=== PATIENT | female | born 1945 | race Caucasian/White ===

== ENCOUNTER 2017-02-03 13:40 | Inpatient (IN) | payer MEDICAID, MEDICARE ==
[~2017-02-03] VITALS: Ht 157.5 cm; Wt 50.8 kg
[~2017-02-03 13:40] MED LIST: FERROUS SULFAT325 MG PO; KEPPRA1000 MG PO; LIPITOR20 MG PO; LYRICA200 MG PO; NAMENDA5 MG PO; NORVASC5 MG PO; PROZAC40 MG PO; TOPAMAX25 MG PO; TOPROL XL50 MG PO
[2017-02-03 13:52] VITALS: BP 191/72
--- NOTE | 2017-02-03 16:11 | NUR ---
PATIENT TAKEN TO BED 6 AT THIS TIME.
--- NOTE | 2017-02-03 16:30 | NUR ---
PATIENT PRESENTS TO ED WITH CHEST PAIN AND DIZZINESS STARTING THIS MORNING . DENIES N/V/D; SKIN IS PINK/WARM/DRY; AAOX4 WITH EVEN AND STEADY GAIT; LUNGS CLEAR BL; HR EVEN AND REGULAR; PT DENIES ANY FEVER, COUGH AT THIS TIME; PATIENT STATES PAIN OF 10/10 AT THIS TIME; PATIENT POSITIONED FOR COMFORT; HOB ELEVATED; BEDRAILS UP X2; BED DOWN. ER MD WILL BE NOTIFIED.
[2017-02-03] MEDS ORDERED: ASPIRIN 81 MG TAB.CHEW PO ONE (16:40)
[2017-02-03] MEDS ORDERED: ONDANSETRON 4 MG/2 ML VIAL IVP PRN (17:00)
[2017-02-03] MEDS ORDERED: ACETAMINOPHEN 325 MG TAB PO PRN (17:00)
--- NOTE | 2017-02-03 17:03 | NUR ---
Patient will be admitted to care of DR PITT. Admited to TELE. Will go to [facility] [address]. Belongings list completed. Report to EVELINA RAMEY.
[2017-02-03] MEDS ORDERED: NITROGLYCERIN 0.4 MG TAB SL PRN ×2 (17:05→17:29)
--- NOTE | 2017-02-03 17:45 | NUR ---
PT ARRIVED IN UNIT IN [facility] WITH 2 ER NURSES AND [id number]. PT IS A&OX3. PT HAS IV ON L AC 22 G SL. SKIN INTACT. PT C/O 10 EPIGASTRIC PAIN, WILL MEDICATE. CALL LIGHT WITHIN REACH. WILL CALL RIB CLOTH KNITTER FOR SCDS. GAVE PT BEDPAN TO VOID IN BED. PT TOLERATED WELL. FALL PRECAUTION INITIATED. YELLOW SIGN, WRIST BAND, AND YELLOW SOCKS. SEIZURE PRECAUTION INITIATED. WILL CONTINUE TO MONITOR.
[2017-02-03 18:00] VITALS: BP 159/67
[2017-02-03] MEDS: HYDROcodone/APAP 7.5/325 MG 1 TAB PO PRN (18:53)
[2017-02-03] MEDS: NACL 0.9% 1,000 ML IV SCH (18:55)
--- NOTE | 2017-02-03 19:15 | NUR ---
RECEIVED REPORT FROM DAY SHIFT NURSE. PT IS AAOX4, UKRAINIAN SPEAKER, FAMILY MEMBER AT BEDSIDE, ON TELE MONITOR, DENIES PAIN AT THIS TIME. ON ROOM AIR, HAS NO S/S OF RESPIRATORY DISTRESS/DISCOMFORT NOTED. IV SITE IS PATENT, INTACT.PLAN OF CARE DISCUSSED, VERBALIZED UNDERSTANDING. SAFETY MEASURES CHECKED, CALL LIGHT WITHIN REACH. WILL CONTINUE TO MONITOR.
--- NOTE | 2017-02-03 19:25 | NUR ---
TALKED TO CELINA BENNETT TELE;INFORMED LACTIC ACID OF PT IS 2.9;
--- NOTE | 2017-02-03 19:26 | NUR ---
ENDORSED CARE OF PT TO ANTIQUE REPAIRER NURSE. PT IN STABLE CONDITION.
[2017-02-03 20:00] VITALS: BP 134/51
[2017-02-03] MEDS: METOPROLOL 25 MG TAB PO SCH (20:20)
[2017-02-03] MEDS: DOCUSATE SODIUM 100 MG GELCAP PO SCH (20:20)
[2017-02-03] MEDS: ATORVASTATIN 20 MG TAB PO SCH (20:20)
--- NOTE | 2017-02-03 20:23 | NUR ---
DUE PO MEDS GIVEN. PROVIDED HEALTH TEACHING, DRUG INFO. BENEFITS AND S/E, VERBALIZED UNDERSTANDING. PT TOLERATED WELL.
[2017-02-04] VITALS: BP 139/56
--- NOTE | 2017-02-04 | NUR ---
V/S CHECKED AND STABLE, DENIES PAIN. ON ROOM AIR HAS NO S/S OF RESPIRATORY DISTRESS/DISCOMFORT NOTED.
--- NOTE | 2017-02-04 01:45 | NUR ---
REPORTED BY THE CHARGE NURSE OF EKG RESULT. CHECKED RESPONSIVENESS OF THE PATIENT, COMPLAINED PAIN OF 9/10. PAGED MD, WAITING FOR CALL BACK.
[2017-02-04] MEDS: HYDROcodone/APAP 7.5/325 MG 1 TAB PO PRN (02:15)
--- NOTE | 2017-02-04 02:48 | NUR ---
SPOKE WITH DR KELLER. MADE AWARE OF EKG RESULT. NO NEW ORDERS MADE. PATIENT ADMINISTERED PAIN MED PER MD ORDERED. WILL CONTINUE TO MONITOR.
[2017-02-04 04:00] VITALS: BP 143/58
--- NOTE | 2017-02-04 04:00 | NUR ---
EYES CLOSED, BREATHING EVENAND UNLABORED. V/S CHECKED, STABLE. DENIED PAIN. CALL LIGHT WITHIN REACH.
--- NOTE | 2017-02-04 06:21 | NUR ---
AM CARE DONE. DENIED PAIN. NO DISCOMFORT NOTED. IV SITE IS PATENT AND INFUSING WELL. CALL LIGHT WITHIN REACH.
--- NOTE | 2017-02-04 07:20 | NUR ---
RECEIVED REPORT FROM NIGHT NURSE, PT IS AAOX3 ROMANSH SPEAKING. ON ROOM AIR IV TO LEFT HAND 22G INFUSING WELL, SKIN INTACT . PT STATES NO CHEST PAIN OR SOB AT AT THIS TIME. INITIAL ASSESSMENT COMPLETED. REVIEWED PLAN OF CARE WITH PT, PT VERBALIZED UNDERSTANDING, ALL SAFETY PRECAUTIONS MET. CALL LIGHT WITHIN REACH. WILL CONTINUE TO MONITOR.
--- NOTE | 2017-02-04 07:20 | NUR ---
ENDORSED PT TO DAY SHIFT NURSE. PT IN STABLE CONDITION.
--- NOTE | 2017-02-04 07:30 | NUR ---
V/S CHECKED; BP 173/61, P= 65. REPORTED TO MD AND MD WILL SEE THE PT.
[2017-02-04] MEDS ORDERED: DEXTROSE 50% 50 ML SYR IVP PRN (07:45)
[2017-02-04] MEDS ORDERED: hydrALAZINE 20 MG/ML VIAL IVP SCH (07:59)
[2017-02-04 08:00] VITALS: BP 173/71
[2017-02-04] MEDS: ASPIRIN 81 MG TAB.CHEW PO SCH (08:46)
[2017-02-04] MEDS: METOPROLOL 25 MG TAB PO SCH (08:47)
[2017-02-04] MEDS: PANTOPRAZOLE 40 MG INJ VIAL IVP SCH (08:47)
[2017-02-04] MEDS: DOCUSATE SODIUM 100 MG GELCAP PO SCH ×2 (08:47→20:33)
[2017-02-04] MEDS: LISINOPRIL 5 MG TAB PO SCH (08:47)
--- NOTE | 2017-02-04 08:55 | NUR ---
DUE MEDICATIONS GIVEN. PT TOLERATED WELL. SON AT BEDSIDE. ALL NEEDS MET. CALL LIGHT WITHIN REACH. WILL CONTINUE TO MONITOR.
--- NOTE | 2017-02-04 09:56 | NUR ---
PATIENT HAS BEEN SCREENED AND CATEGORIZED MODERATE NUTRITION RISK. PATIENT WILL BE SEEN WITHIN 3-5 DAYS OF ADMISSION. 02/06/17-02/08/[address]
[2017-02-04] MEDS ORDERED: ESCITALOPRAM 20 MG TAB PO SCH (10:06)
--- NOTE | 2017-02-04 10:40 | NUR ---
FAXED INITIAL REVIEW TO [facility] [phone] PHONE BRANDON [phone]
[2017-02-04 12:00] VITALS: BP 144/65
[2017-02-04] MEDS ORDERED: FLUoxetine 20 MG CAP PO SCH (12:00)
[2017-02-04] MEDS ORDERED: METOPROLOL SUCCINATE 50 MG TABER PO SCH (12:00)
--- NOTE | 2017-02-04 12:00 | NUR ---
ONE UNIT OF RED BLOOD CELLS GIVEN, PRE TRANSFUSION VS: 98.6, [id number], HR 88, PULSE OX 95%. WILL CONTINUE TO MONITOR. Addendum: 02/04/17 at 1326 by Vonnie Angeles RN DELETE NOTE, WRONG PT.
[2017-02-04] MEDS: BLOOD GLUCOSE MONITORING 1 DEV DEV FS SCH ×3 (12:03→20:43)
[2017-02-04] MEDS: FERROUS SULFATE 325 MG TABEC PO SCH ×2 (12:37→17:45)
[2017-02-04] MEDS: INSULIN LISPRO SLIDING SCALE 100 UNITS/ML VIAL SUBQ PRN ×3 (12:41→20:31)
--- NOTE | 2017-02-04 12:45 | NUR ---
DUE MEDICATION GIVEN, PT CURRENTLY IN BED EATING LUNCH, NO S/S OF DISTRESS NOTED. ALL NEEDS MET. CALL LIGHT WITHIN REACH, WILL CONTINUE TO MONITOR.
[2017-02-04] MEDS: NACL 0.9% 1,000 ML IV SCH (14:55)
--- NOTE | 2017-02-04 15:25 | NUR ---
PT CURRENTLY RESTING IN BED. DAUGHTER IN LAW IN ROOM WITH PT, NO S/S OF DISTRESS NOTED. PT STATES NO CHEST PAIN. ALL NEEDS MET. CALL LIGHT WITHIN REACH. WILL CONTINUE TO MONITOR.
[2017-02-04 16:00] VITALS: BP 147/55
--- NOTE | 2017-02-04 17:49 | NUR ---
DUE MEDICATIONS GIVEN. PT CURRENTLY EATING DINNER AT BEDSIDE. ALL NEEDS MET. CALL LIGHT WITHIN REACH. WILL CONTINUE TO MONITOR.
--- NOTE | 2017-02-04 19:20 | NUR ---
ENDORSED PLAN OF CARE TO NIGHT NURSE. PT IN STABLE CONDITION FAMILY AT BEDSIDE
--- NOTE | 2017-02-04 19:21 | NUR ---
RECEIVED PT AT BED, LAYING, FAMILY AT BED SIDE. DENIES PAIN, ON TELE MONITOR. ON ROOM AIR, HAS NO S/S OF RESPIRATORY DISTRESS/DISCOMFORT. IV SITE ID PATENT AND INTACT, INFUSING WELL. PLAN OF CARE DISCUSSED, VERBALIZED UNDERSTANDING. SAFETY MEASURES CHECKED, CALL LIGHT WITHIN REACH. WILL CONTINUE TO MONITOR.
[2017-02-04 20:00] VITALS: BP 157/64
[2017-02-04] MEDS: ATORVASTATIN 20 MG TAB PO SCH (20:34)
[2017-02-04] MEDS: TOPIRAMATE 25 MG TAB PO SCH (20:34)
[2017-02-04] MEDS: levETIRAcetam 500 MG TAB PO SCH (20:35)
--- NOTE | 2017-02-04 20:39 | NUR ---
DUE MEDS GIVEN. PROVIDED HEALTH TEACHING, DRUG INFO, BENEFITS AND S/E, VERBALIZED UNDERSTANDING. PT TOLERATED MEDS WELL. REMINDED TO USE CALL LIGHT FOR SAFETY, BED ALARM ON. WILL CONTINUE TO MONITOR.
[2017-02-04] MEDS ORDERED: ATORVASTATIN 20 MG TAB PO SCH (21:00)
[2017-02-04] MEDS ORDERED: LORazepam 1 MG TAB PO PRN (23:55)
[2017-02-05] VITALS: BP 105/38
--- NOTE | 2017-02-05 | NUR ---
V/S CHECKED AND STABLE. HAS NO S/S OF RESPIRATORY DISTRESS/DISCOMFORT. CALL LIGHT WITHIN REACH.
--- NOTE | 2017-02-05 02:37 | NUR ---
PT ACCIDENTALLY PULLED OUT HER IV, CANNULA INTACT. PT AGREED FOR INSERTION OF NEW IV, PROVIDED EXPLANATION, BENEFITS. INSERTED A NEW IV, BLOOD RETURN NOTED, SECURED WITH TAPE, FLUID INFUSING WELL.
--- NOTE | 2017-02-05 03:38 | NUR ---
PT IS AGITATED AND CONFUSED. REMOVED HER IV AND HER TELE MONITOR. PROVIDED EXPLANATION, BENEFITS, PT REFUSED TO PUT IT BACK HER TELE MONITOR AND INSERT A NEW IV. CHARGE NURSE MADE AWARE. WILL CONTINUE TO MONITOR.
[2017-02-05 04:00] VITALS: BP 136/55
[2017-02-05] MEDS: LORazepam 1 MG TAB PO SCH ×4 (04:53→20:48)
[2017-02-05] MEDS: INSULIN LISPRO SLIDING SCALE 100 UNITS/ML VIAL SUBQ PRN ×3 (06:14→20:46)
[2017-02-05] MEDS: BLOOD GLUCOSE MONITORING 1 DEV DEV FS SCH ×4 (06:18→20:47)
--- NOTE | 2017-02-05 06:19 | NUR ---
BS CHECKED, BSL = 168 ADMINISTERED INSULIN 2 UNITS. ATTACHED TELE MONITOR TO THE PT, PROVIDED HEALTH TEACHING, USAGE OF TELE MONITOR, VERBALIZED UNDERSTANDING.
--- NOTE | 2017-02-05 07:15 | NUR ---
RECEIVED REPORT FROM NIGHT NURSE, PT IS AAOX3 SLOVAK SPEAKING. ON ROOM AIR. NO IV ACCESS PT REFUSED NEW INSERTION, AWARE. SKIN INTACT . PT STATES NO CHEST PAIN OR SOB AT AT THIS TIME. INITIAL ASSESSMENT COMPLETED. REVIEWED PLAN OF CARE WITH PT, PT VERBALIZED UNDERSTANDING, ALL SAFETY PRECAUTIONS MET. CALL LIGHT WITHIN REACH. WILL CONTINUE TO MONITOR.
--- NOTE | 2017-02-05 07:15 | NUR ---
ENDORSED TO DAY SHIFT NURSE. PT IN STABLE CONDITION.
[2017-02-05 08:00] VITALS: BP 132/55
[2017-02-05] MEDS ORDERED: MAG SULF 2000 MG/WATER PREMIX 50 ML IV SCH (08:00)
[2017-02-05] MEDS: NACL 0.9% 1,000 ML IV SCH (08:58)
[2017-02-05] MEDS: PANTOPRAZOLE 40 MG INJ VIAL IVP SCH (09:00)
[2017-02-05] MEDS ORDERED: ESCITALOPRAM 20 MG TAB PO SCH (09:00)
[2017-02-05] MEDS: METOPROLOL SUCCINATE 50 MG TABER PO SCH (09:00)
[2017-02-05] MEDS: DOCUSATE SODIUM 100 MG GELCAP PO SCH ×2 (09:36→20:47)
[2017-02-05] MEDS: TOPIRAMATE 25 MG TAB PO SCH ×2 (09:37→20:45)
[2017-02-05] MEDS: levETIRAcetam 500 MG TAB PO SCH ×2 (09:37→20:48)
[2017-02-05] MEDS: ASPIRIN 81 MG TAB.CHEW PO SCH (09:37)
[2017-02-05] MEDS: FERROUS SULFATE 325 MG TABEC PO SCH ×3 (09:37→17:21)
[2017-02-05] MEDS: FLUoxetine 20 MG CAP PO SCH (09:38)
[2017-02-05] MEDS: LISINOPRIL 5 MG TAB PO SCH (09:38)
[2017-02-05] MEDS: amLODIPine 5 MG TAB PO SCH (09:38)
--- NOTE | 2017-02-05 09:40 | NUR ---
DUE MEDICATIONS GIVEN. PT TOLERATED WELL. ALL NEEDS MET. CALL LIGHT WITHIN REACH. WILL CONTINUE TO MONITOR.
[2017-02-05] MEDS ORDERED: MAGNESIUM OXIDE 400 MG TAB PO SCH (11:00)
--- NOTE | 2017-02-05 11:10 | NUR ---
PTIS GETTING OUT OF BED, PT IS CONFUSED. PT THINKS SHE IS AT HOME. REORINTED PT TO ENVIRONMENT. ASSISTED PT TO BED, BED ALARM IN PLACE. CALL LIGHT WITHIN REACH. WILL CONTINUE TO MONITOR.
--- NOTE | 2017-02-05 11:30 | NUR ---
FAXED CONCURRENT REVIEW TO [facility] [phone] PHONE BRANDON [phone] SPOKE WITH ALEENA FROM [facility] FAXED INITIAL AND CONCURRENT REVIEW TO HER AT [phone] PHONE [phone]
[2017-02-05 12:00] VITALS: BP 121/53
--- NOTE | 2017-02-05 12:21 | NUR ---
DUE MEDICATION GIVEN, SON AT BEDSIDE. PT CURRENTLY SITTING ON CHAIR EATING LUNCH. ALL NEEDS MET. CALL LIGHT WITHIN REACH. WILL CONTINUE TO MONITOR.
--- NOTE | 2017-02-05 14:25 | NUR ---
PT CURRENTLY WALKING AROUND UNIT WITH SON, NO S/S OF DISTRESS NOTED. WILL CONTINUE TO MONITOR.
--- NOTE | 2017-02-05 14:40 | NUR ---
P.T. NOTES D/C FROM P.T. AFTER TX TODAY; NURSING TO AMBULATE PATIENT AD RAS; REFER TO DC SUMMARY FOR DETAILS. Addendum: 02/05/17 at 1440 by Jeni Maya PT Amended: Links added.
[2017-02-05 16:01] VITALS: BP 139/56
--- NOTE | 2017-02-05 16:10 | NUR ---
PT WALKING AROUND UNIT ASSISTED. RETURNED TO BED. ALL SAFETY MEASURES APPLIED. CALL LIGHT WITHIN REACH. WILL CONTINUE TO MONITOR.
--- NOTE | 2017-02-05 17:22 | NUR ---
DUE MEDICATION GIVEN. ASSISTED PT TO RESTROOM AND BACK TO BED. ALL NEEDS MET. CALL LIGHT WITHIN REACH. WILL CONTINUE TO MONITOR.
--- NOTE | 2017-02-05 19:20 | NUR ---
ENDORSED PLAN OF CARE TO NIGHT NURSE PT IN STABLE CONDITION.
--- NOTE | 2017-02-05 19:30 | NUR ---
RECEIVED REPORT FROM DAYSHIFT NURSE. PT RESTING IN BED, AOX2, CONFUSED BUT ABLE TO VERBALIZE NEEDS. PT REORIENTED TO SURROUNDINGS, SITUATION AND PLACE. CONDITION STABLE. NO C/O CHEST PAIN, SOB OR S/S OF ACUTE DISTRESS. WOOD ROUTER IN PLACE. PT STILL REFUSING IV ACCESS AT THIS TIME. WILL CONTINUE TO REINFORCE. DISCUSSED AND REVIEWED PLAN OF CARE WITH PT. WILL CONTINUE TO REINFORCE TEACHING. SAFETY MEASURES ENSURED. BED ALARM IN PLACE. CALL LIGHT WITHIN REACH. WILL CONTINUE TO MONITOR.
[2017-02-05 20:00] VITALS: BP 122/46
[2017-02-05] MEDS: MAGNESIUM OXIDE 400 MG TAB PO SCH (20:49)
--- NOTE | 2017-02-05 20:50 | NUR ---
MEDICATIONS ADMINISTERED WITH EDUCATION, PT VERBALIZES UNDERSTANDING. WILL CONTINUE TO REINFORCE TEACHING. ASSISTED PT WITH ADLS. PT ABLE TO AMBULATE INDEPENDENTLY WITH STEADY GAIT. SAFETY MEASURES AND BED ALARM ENSURED. CALL LIGHT WITHIN REACH. WILL CONTINUE TO MONITOR.
--- NOTE | 2017-02-05 23:10 | NUR ---
CONDITION STABLE. PT SLEEPING AT THIS TIME. SAFETY MEASURES ENSURED. CALL LIGHT WITHIN REACH. WILL CONTINUE TO MONITOR.
[2017-02-06] VITALS: BP 106/46
[2017-02-06 04:00] VITALS: BP 118/45
--- NOTE | 2017-02-06 04:00 | NUR ---
CONDITION STABLE. PT SLEEPING AT THIS TIME. SAFETY MEASURES ENSURED. CALL LIGHT WITHIN REACH. WILL CONTINUE TO MONITOR.
[2017-02-06] MEDS: NACL 0.9% 1,000 ML IV SCH (04:58)
[2017-02-06] MEDS: LORazepam 1 MG TAB PO SCH ×2 (05:39→12:35)
[2017-02-06] MEDS: INSULIN LISPRO SLIDING SCALE 100 UNITS/ML VIAL SUBQ PRN ×2 (06:48→12:40)
[2017-02-06] MEDS: BLOOD GLUCOSE MONITORING 1 DEV DEV FS SCH ×2 (06:48→11:54)
--- NOTE | 2017-02-06 07:10 | NUR ---
RECEIVED PATIENT REPORT AT BEDSIDE. PATIENT AWAKE, ALERT AND ORIENTED. NO S/S OF DISTRESS NOTED. PATIENT BREATHING ON ROOM AIR. NO C/O PAIN AT THIS TIME. IV LINE NOTED TO THE LEFT FOREARM WITH IVF INFUSING WELL. PATIENT ON TELE MONITORING. BED LOWERED WITH CALL LIGHT WITHIN REACH. WILL CONTINUE TO MONITOR
--- NOTE | 2017-02-06 07:37 | NUR ---
CONDITION STABLE. ENDORSED PLAN OF CARE TO DAYSHIFT NURSE.
[2017-02-06 07:54] VITALS: BP 127/55
[2017-02-06] MEDS: levETIRAcetam 500 MG TAB PO SCH (08:28)
[2017-02-06] MEDS: DOCUSATE SODIUM 100 MG GELCAP PO SCH (08:29)
[2017-02-06] MEDS: FLUoxetine 20 MG CAP PO SCH (08:29)
[2017-02-06] MEDS: ASPIRIN 81 MG TAB.CHEW PO SCH (08:29)
[2017-02-06] MEDS: FERROUS SULFATE 325 MG TABEC PO SCH ×2 (08:29→12:35)
[2017-02-06] MEDS: TOPIRAMATE 25 MG TAB PO SCH (08:29)
[2017-02-06] MEDS: amLODIPine 5 MG TAB PO SCH (08:30)
[2017-02-06] MEDS: PANTOPRAZOLE 40 MG INJ VIAL IVP SCH (08:30)
[2017-02-06] MEDS: MAGNESIUM OXIDE 400 MG TAB PO SCH (08:30)
[2017-02-06] MEDS: METOPROLOL SUCCINATE 50 MG TABER PO SCH (08:30)
--- NOTE | 2017-02-06 08:45 | NUR ---
ADMINISTERED DUE MEDS. PATIENT TOLERATED WELL.
--- NOTE | 2017-02-06 09:18 | NUR ---
PATIENT ASLEEP IN BED. NO S/S OF DISTRESS NOTED
[2017-02-06] MEDS ORDERED: INVOKANA300 MG PO (10:59)
[2017-02-06] MEDS ORDERED: GLUCOPHAGE850 MG PO (11:01)
--- NOTE | 2017-02-06 11:14 | NUR ---
CM NOTE FAXED CONCURRENT REVIEW TO [facility] [phone] PHONE BRANDON [phone] AND [facility] FAX# [phone] SHELLY Bermeo # [phone]
--- NOTE | 2017-02-06 11:53 | NUR ---
02/06/17 RD INITIAL ASSESSMENT COMPLETED PLEASE REFER TO NUTRITION ASSESSMENT UNDER CARE ACTIVITY FOR ESTIMATED NUTRITIONAL NEEDS. 1. CHANGE DIET TO: 60 GM CONSISTENT CARBOHYDRATE DIET 2. RD TO FOLLOW-UP 3-5 DAYS; MODERATE RISK SHERLYN DEAN RD
[2017-02-06 12:00] VITALS: BP 125/57
--- NOTE | 2017-02-06 13:30 | NUR ---
CALLED CRISELDA PALACIOS, PATIENT'S FAMILY MEMBER, AND INFORMED HER THAT PATIENT IS BEING DISCHARGED. PATIENT TO BE PICKED UP
--- NOTE | 2017-02-06 14:47 | NUR ---
PATIENT AMBULATING AROUND THE UNIT. NO S/S OF DISTRESS NOTED
--- NOTE | 2017-02-06 15:10 | NUR ---
SS NOTE: I SPOKE WITH PT'S DTR-IN-LAW, CRISELDA MADINA. SHE STATED THAT SHE WOULD LIKE ADDITIONAL RESOURCES TO ASSIST IN HER CARE FOR PT'S MEMORY ISSUES. I PROVIDED HER WITH THE [employer] GUIDE FOR MEMORY CARE FACILITIES WELL IN HOME SUPPORTIVE SERVICES.
--- NOTE | 2017-02-06 15:30 | NUR ---
PATIENT DISCHARGED TO HOME. DISCHARGE INSTRUCTIONS AND DISCHARGE PRESCRIPTIONS GIVEN. PATIENT'S LABORER AMMUNITION ASSEMBLY/ [id number] VERBALIZED UNDERSTANDING. IV LINE DISCONTINUED. TELE LEADS TAKEN OFF. PATIENT LEFT WITH ALL HER BELONGINGS AND DISCHARGE PAPERS. PATIENT LEFT IN STABLE CONDITION
== END 2017-02-06 15:30 | disposition home or self-care (01) | DRG 203 ==
LOC: MED 13:40 → MTU 17:04
PROVIDERS: ADMIT Family Medicine; ATTEND Family Medicine
DX: M94.0 Chondrocostal junction syndrome [Tietze] (principal); G93.41 Metabolic encephalopathy; E11.65 Type 2 diabetes mellitus with hyperglycemia; I42.9 Cardiomyopathy, unspecified; G30.9 Alzheimer's disease, unspecified; F02.81 Dementia in other diseases classified elsewhere, unspecified severity, with behavioral disturbance; E83.42 Hypomagnesemia; F32.0 Major depressive disorder, single episode, mild; I10 Essential (primary) hypertension; G40.909 Epilepsy, unspecified, not intractable, without status epilepticus; D50.9 Iron deficiency anemia, unspecified; K21.9 Gastro-esophageal reflux disease without esophagitis; I25.10 Atherosclerotic heart disease of native coronary artery without angina pectoris; E78.5 Hyperlipidemia, unspecified; F41.9 Anxiety disorder, unspecified; Z79.899 Other long term (current) drug therapy; Z90.49 Acquired absence of other specified parts of digestive tract

== ENCOUNTER 2017-10-01 11:37 | Emergency (ER) | payer MEDICARE, MEDICAID ==
[~2017-10-01] VITALS: Ht 157.5 cm; Wt 54.9 kg
[~2017-10-01 11:37] MED LIST changes: +AMLO1TAB39 PO; +ASPI81CT89 PO; +ATOR20TA40 PO; -FERROUS SULFAT325 MG PO; +GLU500 PO; +KEP500 PO; -KEPPRA1000 MG PO; -LIPITOR20 MG PO; -LYRICA200 MG PO; +MECL-270 PO; +MEMA10TA PO; -NAMENDA5 MG PO; -NORVASC5 MG PO; -PROZAC40 MG PO; +RANI150C PO; +SERT-146 PO; +SITA100T8 PO; -TOPAMAX25 MG PO; -TOPROL XL50 MG PO; +TRAZ-286 PO
[2017-10-01 11:41] VITALS: BP 174/58
--- NOTE | 2017-10-01 11:48 | NUR ---
EKG done in triage.
--- NOTE | 2017-10-01 11:51 | NUR ---
PATIENT AMBULATED TO BED 1 A THIS TIME.
--- NOTE | 2017-10-01 12:18 | NUR ---
PATIENT PRESENTS TO ED WITH C/O HEADACHE X8 DAYS, LUQ AND RUQ PAIN STARTING LAST NIGHT;ALSO C/O SOB;O2 SAT IN ER 99% AT ROOM AIR;NO NASAL FLARING/RETRACTION NOTED;HX OF DM, EPILEPSY, HTN, CHOLESTEROL;SURGICAL: CHOLECYSTECOMY . DENIES N/V/D; SKIN IS PINK/WARM/DRY; AAOX4 WITH EVEN AND STEADY GAIT; LUNGS CLEAR BL; HR EVEN AND REGULAR; PT DENIES ANY FEVER, CP OR COUGH AT THIS TIME; PATIENT STATES PAIN OF 8/10 AT THIS TIME; PATIENT POSITIONED FOR COMFORT; HOB ELEVATED; BEDRAILS UP X2; BED DOWN. ALL MONITORS IN PLACED;ER MD MADE AWARE OF PT STATUS.
[2017-10-01] MEDS ORDERED: MORPHINE SULFATE 2 MG/ML SYR IM ONE (12:20)
[2017-10-01] MEDS ORDERED: ONDANSETRON 4 MG ODT PO ONE (12:20)
[2017-10-01 13:59] VITALS: BP 145/44
== END 2017-10-01 13:58 | disposition home or self-care (01) ==
LOC: MED 11:37
DX: R51 Headache (principal); R42 Dizziness and giddiness; E11.9 Type 2 diabetes mellitus without complications; I10 Essential (primary) hypertension; Z90.49 Acquired absence of other specified parts of digestive tract; Z86.73 Personal history of transient ischemic attack (TIA), and cerebral infarction without residual deficits; Z79.899 Other long term (current) drug therapy; Z79.82 Long term (current) use of aspirin
CPT/HCPCS: 36415; 82948; 84484; 93005; 96372; 99285; J2270; S0119